=== PATIENT | female | born 1975 | race Caucasian/White ===

== ENCOUNTER 2018-04-15 18:37 | Emergency (ER) | payer OTHER ==
[~2018-04-15] VITALS: Ht 170.1 cm; Wt 70.3 kg
[2018-04-15] MEDS ORDERED: CELEXA10 MG PO (19:00)
[2018-04-15 19:40] VITALS: BP 128/85
== END 2018-04-15 21:15 | disposition home or self-care (01) ==
LOC: ED 18:37
DX: T78.40XA Allergy, unspecified, initial encounter (principal); X58.XXXA Exposure to other specified factors, initial encounter